=== PATIENT | male | born 1990 | race American Indian/Alaskan Native ===

== ENCOUNTER 2021-12-06 19:01 | Emergency (ER) | payer MEDICAID, OTHER ==
[~2021-12-06] VITALS: Ht 193 cm; Wt 108.9 kg
[2021-12-06 19:22] VITALS: BP 126/94
[2021-12-06] MEDS ORDERED: TETANUS IMMUNE GLOBULIN 250 UNIT/ML SYRG IM ONE (20:30)
[2021-12-06] MEDS ORDERED: RABIES VACCINE (PCEC)/PF 2.5 UNITS IM ONE ×2 (20:30→21:00)
[2021-12-06] MEDS ORDERED: RABIES VIRUS VACCINE, HDC 2.5 UNIT/ML ML IM ONE (21:24)
[2021-12-06] MEDS ORDERED: CEPH-509 PO (23:10)
[2021-12-06] MEDS ORDERED: CEPHALEXIN 250 MG CAP PO ONE (23:15)
== END 2021-12-06 23:25 | disposition home or self-care (01) ==
LOC: ER 19:04
DX: S51.051A Open bite, right elbow, initial encounter (principal); Z79.899 Other long term (current) drug therapy; W54.0XXA Bitten by dog, initial encounter; Y93.89 Activity, other specified; Y92.89 Other specified places as the place of occurrence of the external cause; Y99.8 Other external cause status
CPT/HCPCS: 73080; 90675; 96372; 99283; J1670